=== PATIENT | female | born 1965 | race African-American/Black ===

== ENCOUNTER 2022-01-02 20:13 | Emergency (ER) | payer MEDICAID ==
[~2022-01-02] VITALS: Ht 170.2 cm; Wt 69.9 kg
--- NOTE | 2022-01-02 20:15 | NUR ---
PT BIB ALS TO ER BED 06
[2022-01-02 20:16] VITALS: BP 179/78
[2022-01-02 21:23] LABS: BASOPHILS % (AUTO) 0.9 % (0.0-2.0); EOSINOPHILS # (AUTO) 0.1 K/uL (0-0.4); EOSINOPHILS % (AUTO) 1.1 % (0.0-4.0); HEMATOCRIT 31.8 % (36-48); HEMOGLOBIN 10.5 g/dL (12.0-16.0); LYMPHOCYTES # (AUTO) 1.7 K/uL (2.5-16.5); LYMPHOCYTES % (AUTO) 29.5 % (20.5-51.1); MEAN CORPUSCULAR HEMOGLOBIN 26 pg (27-31); MEAN CORPUSCULAR HGB CONC 33 g/dL (33-37); MEAN CORPUSCULAR VOLUME 78.7 fL (80-94); MONOCYTES # (AUTO) 0.5 K/uL (0.8-1.0); MONOCYTES % (AUTO) 8.1 % (1.7-9.3); NEUTROPHILS # (AUTO) 3.5 K/uL (1.8-7.7); NEUTROPHILS % (AUTO) 60.4 % (42.2-75.2); PLATELET COUNT (AUTO) 262 K/uL (140-450); RED BLOOD CELL COUNT(AUTO) 4.05 MIL/uL (4.20-5.40); RED CELL DISTRIBUTION WIDTH 13.3 % (11.6-13.7); WHITE BLOOD COUNT (AUTO) 5.7 K/uL (4.8-10.8)
[2022-01-02] MEDS ORDERED: PHENYTOIN 1,000 MG in NACL 0.9% 100 ML IV ONE (21:25)
[2022-01-02 21:41] LABS: ALBUMIN 3.1 g/dL (3.4-5.0); ANION GAP 11.7 (8-16); ASPARTATE AMINOTRANSFERASE 16 U/L (15-37); CARBON DIOXIDE 25.6 mmol/L (21-32); CHLORIDE 105 mmol/L (98-107); CREATININE 1.2 mg/dL (0.6-1.3); GFR ARICAN-AMERICAN 60 mL/min (>90); GLUCOSE 246 mg/dL (74-106); POTASSIUM 3.3 mmol/L (3.5-5.1); SODIUM SERUM 139 mmol/L (136-145); TOTAL BILIRUBIN 0.1 mg/dL (0.0-1.0); UREA NITROGEN, BLOOD 26 mg/dL (7-18)
[2022-01-02] MEDS ORDERED: PHENYTOIN 250 MG/5 ML VIAL IV ONE (21:51)
--- NOTE | 2022-01-02 22:14 | NUR ---
SISTER AT BEDSIDE. PT IS MORE ALERT
--- NOTE | 2022-01-02 23:09 | NUR ---
MADE AWARE TO ER MD DR FRIEDMAN THAT SISTER WAS AT BEDSIDE.
[2022-01-03] MEDS ORDERED: ACETAMINOPHEN EXTRA STRENGTH 500 MG TAB PO ONE
[2022-01-03] MEDS ORDERED: ACETAMINOPHEN EXTRA STRENGTH 500 MG TAB ONE (00:05)
--- NOTE | 2022-01-03 00:11 | NUR ---
URINE COLLECTED AND SENT TO LAB
[2022-01-03 01:02] LABS: BARBITURATE, URINE POSITIVE ng/ml (NEG <=200); BENZODIAZEPINE, URINE NEGATIVE ng/mL (NEG <=200); CANNABINOID, URINE NEGATIVE ng/mL (NEG <=50); COCAINE, URINE NEGATIVE ng/mL (NEG <=300); OPIATE, URINE NEGATIVE ng/mL (NEG <=2000); PHENCYCLIDINE SCREEN,URINE NEGATIVE ng/mL (NEG <=25)
--- NOTE | 2022-01-03 01:15 | NUR ---
rad at bedside
--- NOTE | 2022-01-03 01:50 | NUR ---
XRAY OF LEFT HAND DONE. WAITING ON RESULTS
--- NOTE | 2022-01-03 02:00 | NUR ---
ER MD DR FRIEDMAN AT BEDSIDE. PATIENT AND FAMILY MADE AWARE OF THE NEED TO WATCH PT TILL 6AM. PT FAMILY WILL RETURN IN EARLY AM FOR PT DC
--- NOTE | 2022-01-03 03:07 | NUR ---
TDAP WAS GIVEN PT RESTING COMFORTABLE IN BED SIDE RAILS UP SZ PRECAUTION PADS ON SIDE RAILS.
--- NOTE | 2022-01-03 04:43 | NUR ---
KELLY [phone] - 45 MINS RESPONSE TIME
--- NOTE | 2022-01-03 04:50 | NUR ---
WALKED WITH PATIENT TO BATHROOM. GAINT UNSTEADY
--- NOTE | 2022-01-03 05:53 | NUR ---
PT LEFT FOR CT
--- NOTE | 2022-01-03 06:06 | NUR ---
PER SISTER, HAS BEEN DRINKING AND IS UNCOMFORTABLE WITH PT GOING HOME WITH HIM. COMING SOON TO PICK HEWR UP
--- NOTE | 2022-01-03 06:09 | NUR ---
BACK FROM CT VIA [facility] WITH THE TECH
--- NOTE | 2022-01-03 06:30 | NUR ---
A/w results of CT
--- NOTE | 2022-01-03 06:50 | NUR ---
All results bAck and noted by ERMD and for D/C
--- NOTE | 2022-01-03 06:59 | NUR ---
Still waiting for the sister,to be dscharge.
[2022-01-03 07:15] VITALS: BP 124/78
--- NOTE | 2022-01-03 07:15 | NUR ---
Patient discharged with v/s stable. Written and verbal after care instructions given and explained. Patient verbalized understanding. via wheelchair to car, wit sister. All questions addressed prior to discharge. Advised to follow up with PMD.
== END 2022-01-03 07:15 | disposition home or self-care (01) ==
LOC: MED 20:13
DX: G40.909 Epilepsy, unspecified, not intractable, without status epilepticus (principal); Z88.0 Allergy status to penicillin
CPT/HCPCS: 29130; 36415; 70450; 73130; 73562; 80053; 80305; 81025; 85025; 90471; 90715; 93005; 96365; 99285; G0482; J1165; Q0092